=== PATIENT | male | born 1965 | race Caucasian/White ===

== ENCOUNTER → 2020-03-06 15:46 | Outpatient (CLI) | payer OTHER, SELFPAY ==
[2020-03-06 16:34] LABS: Add Manual Diff / Slide Review NO; Basophils Absolute Auto 200 /uL (0-100); Basophils Percent Auto 1.4 % (0-2); Eosinophils Absolute Auto 700 /uL (0-450); Eosinophils Percent Auto 5.2 % (2-4); Hematocrit 39.4 % (41-53); Hemoglobin 12.4 g/dL (13.5-17.5); Lymphocytes Absolute Auto 2500 /uL (1100-4500); Lymphocytes Percent Auto 19.1 % (25-40); Mean Corpuscular HGB Conc 31.5 % (30-36); Mean Corpuscular Hemoglobin 25.9 PG (26-34); Mean Corpuscular Volume 82.3 fL (80-100); Monocytes Absolute Auto 1200 /uL (0-900); Monocytes Percent Auto 9.4 % (3-14); Neutrophils Absolute Auto 8500 /uL (1500-7000); Neutrophils Percent Auto 64.9 % (50-75); Platelet Count 401 X10^3/uL (150-400); Red Blood Cell Count 4.78 X10^6/uL (4.5-5.9); Red Cell Distribution Width 14.8 % (11.6-14.8)
[2020-03-06 16:47] LABS: Alanine Aminotransferase 15 IU/L (<50); Albumin 4.3 g/dL (3.5-5.0); Albumin Globulin Ratio 1.4 (1.0-2.8); Alkaline Phosphatase 94 U/L (38-126); Aspartate Aminotransferase 24 IU/L (17-59); BUN Creatinine Ratio 26.6 (6-22); Bilirubin Total 0.2 mg/dL (0.2-1.3); Blood Urea Nitrogen 25 mg/dL (9-20); Calcium 9.4 mg/dL (8.4-10.2); Carbon Dioxide 29 mmol/L (22-32); Chloride 108 mmol/L (98-107); Cholesterol 214 mg/dL (140-199); Estimated Glomerular Filt Rate > 60.0 mL/min (>60); Glucose 98 mg/dL (70-100); HDL Cholesterol 44 mg/dL (40-60); HEMOLYSIS 17 (0-50); LDL Cholesterol Calculated 142 mg/dL (<100); Potassium 4.3 mmol/L (3.4-5.1); Sodium 142 mmol/L (137-145); Total Protein 7.3 g/dL (6.3-8.2); Triglycerides 139 mg/dL (35-150)
[2020-03-06 17:17] LABS: Prostate Specific Antigen Scrn 1.15 ng/mL (0.1-4.0)
[2020-03-06 17:19] LABS: TSH w/ Reflex to FT4 1.62 uIU/mL (0.47-4.68)
== END ==
PROVIDERS: PCP Family Medicine; Referring Provider Family Medicine; Visit Provider Family Medicine
DX: E78.00 Pure hypercholesterolemia, unspecified (principal); I10 Essential (primary) hypertension; Z12.5 Encounter for screening for malignant neoplasm of prostate; Z13.29 Encounter for screening for other suspected endocrine disorder; Z13.1 Encounter for screening for diabetes mellitus
CPT/HCPCS: 36415; 80053; 80061; 83036; 84443; 85025; G0103

== ENCOUNTER → 2020-03-06 15:56 | Outpatient (CLI) | payer OTHER, SELFPAY ==
--- NOTE | 2020-03-06 15:58 | DI.RAD.S_ITS ---
PROCEDURE: XR HAND RT MIN 3V INDICATIONS: Bilateral hand pain TECHNIQUE: 3 views of the hand(s) acquired. COMPARISON: None. FINDINGS: Bones: No fractures or dislocations. Carpal bones are normally aligned. No suspicious bony lesions. Soft tissues: No suspicious soft tissue calcifications. IMPRESSION: No trauma found. No sign of erosive arthritis. Dictated by: Orlin Harrison M.D. on 03/06/2020 at 16:50 Approved by: Orlin Harrison M.D. on 03/06/2020 at 16:50
--- NOTE | 2020-03-06 15:58 | DI.RAD.S_ITS ---
PROCEDURE: XR HAND LT MIN 3V INDICATIONS: Bilateral hand pain TECHNIQUE: 3 views of the hand(s) acquired. COMPARISON: None. FINDINGS: Bones: No fractures or dislocations. Carpal bones are normally aligned. No suspicious bony lesions. Soft tissues: No suspicious soft tissue calcifications. IMPRESSION: No trauma found, no inflammatory change identified. Dictated by: Orlin Harrison M.D. on 03/06/2020 at 16:50 Approved by: Orlin Harrison M.D. on 03/06/2020 at 16:51
== END ==
PROVIDERS: PCP Family Medicine; Referring Provider Family Medicine; Visit Provider Family Medicine
DX: M79.641 Pain in right hand (principal); E78.00 Pure hypercholesterolemia, unspecified; I10 Essential (primary) hypertension; Z12.5 Encounter for screening for malignant neoplasm of prostate; Z13.29 Encounter for screening for other suspected endocrine disorder; Z13.1 Encounter for screening for diabetes mellitus; M79.642 Pain in left hand
CPT/HCPCS: 36415; 73130; 80053; 80061; 83036; 84443; 85025; G0103

== ENCOUNTER → 2024-12-24 13:53 | Outpatient (CLI) | payer OTHER, SELFPAY ==
[2024-12-24 14:59] LABS: Add Manual Diff / Slide Review NO; Hematocrit 28.1 % (41-53); Hemoglobin 8.6 g/dL (13.5-17.5); Lymphocytes Absolute Auto 2200 /uL (1100-4500); Mean Corpuscular HGB Conc 30.4 % (30-36); Mean Corpuscular Hemoglobin 19.6 PG (26-34); Mean Corpuscular Volume 64.4 fL (80-100); Platelet Count 374 X10^3/uL (150-400)
[2024-12-24 15:20] LABS: Anisocytosis 1+; Microcytosis 1+; Ovalocytes 1+; Target Cells 1+
[2024-12-24 15:21] LABS: Hemoglobin A1C% w Est Avg Glu 5.6 % (4.0-6.0); Hypochromasia 2+; Stomatocytes 1+
[2024-12-24 15:33] LABS: Alanine Aminotransferase 24 IU/L (<50); Albumin 4.0 g/dL (3.5-5.0); Albumin Globulin Ratio 1.5 (1.0-2.8); Alkaline Phosphatase 90 U/L (38-126); Blood Urea Nitrogen 22 mg/dL (9-20); Calcium 9.0 mg/dL (8.4-10.2); Carbon Dioxide 28 mmol/L (22-32); Chloride 106 mmol/L (98-107); Cholesterol 171 mg/dL (140-199); Estimated Glomerular Filt Rate > 60 mL/min (>60); Globulin 2.6 g/dL (1.7-4.1); Glucose 108 mg/dL (70-99); HDL Cholesterol 48 mg/dL (40-60); HEMOLYSIS < 15 (0-50); Potassium 4.3 mmol/L (3.4-5.1); Sodium 140 mmol/L (137-145); Total Protein 6.6 g/dL (6.3-8.2); Triglycerides 115 mg/dL (35-150)
[2024-12-24 15:53] LABS: Free T4, Direct Thyroxine 1.30 ng/dL (0.78-2.19)
[2024-12-24 16:03] LABS: Prostate Specific Antigen 0.984 ng/mL (0.10-4.00)
[2024-12-24 16:06] LABS: Thyroid Stimulating Hormone 0.931 uIU/mL (0.47-4.68)
== END ==
PROVIDERS: PCP Family Medicine; Referring Provider Family Medicine; Visit Provider Family Medicine
DX: I10 Essential (primary) hypertension (principal); Z87.898 Personal history of other specified conditions; E78.00 Pure hypercholesterolemia, unspecified; J44.9 Chronic obstructive pulmonary disease, unspecified; G47.33 Obstructive sleep apnea (adult) (pediatric); J43.1 Panlobular emphysema; F51.01 Primary insomnia; M05.79 Rheumatoid arthritis with rheumatoid factor of multiple sites without organ or systems involvement; E04.1 Nontoxic single thyroid nodule
CPT/HCPCS: 36415; 80053; 80061; 83036; 84153; 84439; 84443; 85025; 85651; 86200; 86430

== ENCOUNTER → 2025-01-01 16:20 | Outpatient (CLI) | payer OTHER, SELFPAY ==
--- NOTE | 2025-01-01 16:21 | DI.US.S_ITS ---
PROCEDURE: US THYROID
== END ==
LOC: US 16:21
PROVIDERS: PCP Family Medicine; Referring Provider Family Medicine; Visit Provider Family Medicine
DX: E04.1 Nontoxic single thyroid nodule (principal)
CPT/HCPCS: 76536